=== PATIENT | male | born 1975 | race Hispanic/Latino ===

== ENCOUNTER 2021-07-02 00:13 | Day surgery (SDC) | payer BC, SELFPAY ==
[2021-06-23 11:46] VITALS: BMI 47.5
[2021-07-02 07:28] VITALS: BP 133/78; PULSE 77; RESP 18; TEMP 36.4; O2SAT 98; BMI 45.7
[2021-07-02] MEDS: LACTATED RINGERS 1,000 ML 150 ML IV CONT (07:53)
--- NOTE | 2021-07-02 08:12 | WPDANESEPPF ---
Anes - Initial Pre Proc Eval Procedure: Operation Date: 07/02/21 08:30 Proposed Procedures p Screening Colonoscopy - Roi García MD Date/Time: 07/02/21 08:12 Surgeon: Rio García MD Pre Op Diagnosis: neoplasm screening Patient Data Age: 46 Gender: M Height: 1.83 m Weight: 153 kg Last Vital Signs Temp 36.4 C L 07/02/21 07:28 Pulse 77 07/02/21 07:28 Resp 18 07/02/21 07:28 BP 133/78 07/02/21 07:28 Pulse Ox 98 07/02/21 07:28 Allergies Allergy/AdvReac Type Severity Reaction Status Date / Time No Known Allergies Allergy Verified 07/02/21 07:37 Home Medications Medication Instructions Recorded Confirmed Type levothyroxine 150 mcg tablet 150 mcg PO DAILY #90 tablet 12/07/20 07/02/21 Rx Lacto.acidophilus-Bif.animalis 1 cap PO DAILY 06/23/21 07/02/21 History [Daily Probiotic] fluticasone propionate [Flonase] 1 spray INTRANASAL DAILY 06/23/21 07/02/21 History loratadine [Claritin] 10 mg PO DAILY 06/23/21 07/02/21 History multivitamin [Daily Multivitamin] 1 tablet PO DAILY 06/23/21 07/02/21 History Patient hx anesthesia problems: none Family hx anesthesia problems: none Results Review: All pre-operative results and documents have been reviewed as part of the pre-operative evaluation. [facility] Past Medical History Medical History Diabetes Hypothyroidism Morbid obesity with BMI of 45.0-49.9, adult HILDA on CPAP Family History Family History Mother Hypertension Family history of malignant neoplasm lymphoma vs lung ca Father Family history of malignant neoplasm liver vs prostate cancer Social History Social History Smoking status: Never smoker Second hand tobacco smoke exposure: No Alcohol intake: current Alcohol use details: 1-2 drinks per month Substance use: never Substance use type: does not use Living arrangements: with family Gender identity (if verbalized by the patient): Male Spiritual care concerns: No Anes - Eval Final PreProcedure Day of Procedure 07/02/21 08:12 Patient weight: morbidly obese Heart: regular rate and rhythm Lungs: clear to auscultation Airway: Mallampati scale class II Neurological: alert and oriented Last oral intake: >/= 8 hours ASA classification: III Emergent: no Anesthetic plan: proceed Anesthesia type and monitoring: general GIVS and standard monitoring Results Review: All pre-operative results and documents have been reviewed as part of the pre-operative evaluation. Informed Consent: The patient's anesthetic plan and its attendant risks and benefits were discussed with the patient/family/POA. Questions were solicited and answers provided to the satisfaction of the patient/family/POA.
--- NOTE | 2021-07-02 08:18 | PM.HPGS ---
History of Present Illness History of Present Illness Consent: Risks, benefits, and alternatives have been discussed and questions answered. Patient agrees to proceed with procedure. Chief complaint: neoplasm screening Narrative: Rafael Zuniga Jr. is a 46 year old male here for screening colonoscopy Review of Systems Constitutional: Constitutional: Denies headache(s) and Denies weakness Eyes: Eyes: Denies blurry vision ENT: Reports Normal hearing present, Denies headache(s) and Denies neck pain Cardiovascular: Cardiovascular: Denies chest pain and Denies dyspnea Respiratory: Respiratory: Denies dyspnea Gastrointestinal: Gastrointestinal: Reports no additional gastrointestinal complaints Genitourinary: Genitourinary: Denies dysuria Musculoskeletal: Musculoskeletal: Denies neck pain Integumentary/Breasts: Skin/Breast: Denies dry skin Neurologic: Reports Normal hearing present, Denies headache(s) and Denies weakness Psychiatric: Psychiatric: Denies anxiety Endocrine: Endocrine: Denies change in body appearance Hematologic/Lymphatic: Hematologic/Lymphatic: Denies easy bleeding Allergic/Immunologic: Allergic/Immunologic: Denies urticaria [facility] Past Medical History Medical History (Updated 07/02/21 @ 08:19 by Rio García MD) Colon cancer screening Diabetes Hypothyroidism Morbid obesity with BMI of 45.0-49.9, adult HILDA on CPAP Family History Family History Mother Hypertension Family history of malignant neoplasm lymphoma vs lung ca Father Family history of malignant neoplasm liver vs prostate cancer Social History Social History Smoking status: Never smoker Second hand tobacco smoke exposure: No Alcohol intake: current Alcohol use details: 1-2 drinks per month Substance use: never Substance use type: does not use Living arrangements: with family Gender identity (if verbalized by the patient): Male Spiritual care concerns: No Meds Home Medications and Allergies Home Medications Medication Instructions Recorded Confirmed Type levothyroxine 150 mcg tablet 150 mcg PO DAILY #90 tablet 12/07/20 07/02/21 Rx Lacto.acidophilus-Bif.animalis 1 cap PO DAILY 06/23/21 07/02/21 History [Daily Probiotic] fluticasone propionate [Flonase] 1 spray INTRANASAL DAILY 06/23/21 07/02/21 History loratadine [Claritin] 10 mg PO DAILY 06/23/21 07/02/21 History multivitamin [Daily Multivitamin] 1 tablet PO DAILY 06/23/21 07/02/21 History Allergies Allergy/AdvReac Type Severity Reaction Status Date / Time No Known Allergies Allergy Verified 07/02/21 07:37 Vital Signs Vital Signs - 24 hr 07/02/21 07:28 Temperature 97.5 F L Pulse Rate 77 Respiratory Rate 18 Blood Pressure 133/78 Pulse Oximetry 98 Exam Const: General: comfortable and no acute distress HENMT: General nose exam: Normal nares present Eyes: General: appearance normal, both eyes and all related structures Neck: Neck: no JVD Resp: Auscultation: clear to auscultation bilaterally Cardio: Rate: regular rate Rhythm: regular rhythm GI: Inspection: non-distended GI Palp: Yes Soft to palpation Skin: General skin exam: normal color Neuro: General: gait normal Speech: normal speech Extrem: General: normal to inspection Psych: Mental Status: mental status grossly normal Assessment and Plan Assessment and plan (1) Colon cancer screening: Code(s): Z12.11 - Encounter for screening for malignant neoplasm of colon Status: Acute Assessment and Plan: colonoscopy
[2021-07-02 08:40] VITALS: BP 139/89; PULSE 77; RESP 21; O2SAT 96
[2021-07-02 08:50] VITALS: BP 118/75; PULSE 68; RESP 14; O2SAT 98
[2021-07-02 09:00] VITALS: BP 131/76; PULSE 65; RESP 18; O2SAT 98
== END 2021-07-02 09:06 | disposition home or self-care (01) ==
PROVIDERS: PCP Family Medicine; Visit Provider Internal Medicine Gastroenterology
PROC: 0DJD8ZZ Inspection of Lower Intestinal Tract, Via Natural or Artificial Opening Endoscopic (ICD-10-PCS; CPT 45378; principal; 2021-07-02 08:30)
DX: Z12.11 Encounter for screening for malignant neoplasm of colon (principal); D12.2 Benign neoplasm of ascending colon; K64.8 Other hemorrhoids; E11.9 Type 2 diabetes mellitus without complications; E03.9 Hypothyroidism, unspecified; G47.33 Obstructive sleep apnea (adult) (pediatric); E66.01 Morbid (severe) obesity due to excess calories; Z68.42 Body mass index [BMI] 45.0-49.9, adult
CPT/HCPCS: 45385; 88305; J2704; J7120

== ENCOUNTER 2024-07-26 00:27 | Day surgery (SDC) | payer BC, SELFPAY ==
[2024-07-18 14:17] VITALS: BMI 42.4
--- OUTSIDE RECORDS SUMMARY | 2024-07-26 00:30 | XMS_ITS | Referral Summary ---
Author Organization [facility] [address] Address [address] [place] [address] Care Team Providers Care Automat Watcher Name Role Phone Nii Wilson MD Primary Care Provider Social History Tobacco Use Types Packs/Day Years Used Date Smoking Tobacco: Never Assessed Personal Safety Answer Date Recorded Getting School Help Needed Not on file 06/24 Sex and Gender Information Value Date Recorded Sex Assigned at Not on file Legal Sex Male 11:46 AM CDT Gender Identity Not on file Sexual Orientation Not on file Plan of Treatment Not on file Insurance [facility] Care Teams Automat Watcher Relationship Specialty Start Date End Date Nii Wilson MD [address] [facility] [address] [place] [address] PCP - General Family Medicine 07/24/17
--- OUTSIDE RECORDS SUMMARY | 2024-07-26 00:30 | XMS_ITS | Clinical Summary ---
Author Organization [facility] [place] [address] Address [address] [place] [address] Care Team Providers Care Lye Treater Name Role Phone Nii Wilson MD Primary [...] Orientation Not on file Plan of Treatment Health Maintenance Due Date Last Done Comments Colon Cancer Screening-Colonoscopy 1974 Depression Screening 1974 Hepatitis C Screening 1974 Prostate Cancer Screening-PSA 1974 DTaP/Tdap/Td Vaccine (1 - Tdap) 1985 Hepatitis B Screening 1992 Regular Well Visit/Exam 18-64 1992 Covid-19 Vaccine ( season) 2023 12/31/2022, 01/02/2022, 03/02/2021, Additional history exists Influenza Vaccine (#1) 2023 , 12/12/2021, 12/12/2020, Additional history exists Zoster Vaccine (1 of 2) 2024 Pneumococcal vaccine <65 Aged Out No longer eligible based on patient's age to complete this topic Insurance [facility] Care Teams Lye Treater Relationship Specialty Start Date End Date Nii Wilson MD [address] [place] [address] PCP - General Family Medicine 07/24/17
[2024-07-26 10:37] VITALS: BP 116/76; PULSE 66; RESP 18; TEMP 36.3; O2SAT 100; BMI 41.5
[2024-07-26] MEDS: LACTATED RINGERS 1,000 ML 150 ML IV CONT (10:48)
[2024-07-26 10:50] LABS: Glucose Point of Care 105 mg/dl (65-105)
--- NOTE | 2024-07-26 12:05 | P.PNAN_ITS ---
Anes - Initial Pre Proc Eval Procedure: Operation Date: 07/26/24 12:30 Proposed Procedures p Colonoscopy - Rio García MD Date/Time: 07/26/24 12:05 Surgeon: Rio García MD Pre Op Diagnosis: Screening Patient Data Age: 49 Gender: M Height: 1.83 m Weight: 139 kg Last Vital Signs Temp 36.3 C L 07/26/24 10:37 Pulse 66 07/26/24 10:37 Resp 18 07/26/24 10:37 BP 116/76 07/26/24 10:37 Pulse Ox 100 07/26/24 10:37 O2 Del Method Room Air 07/26/24 10:37 Allergies Allergy/AdvReac Type Severity Reaction Status Date / Time No Known Allergies Allergy Verified 07/26/24 10:36 Home Medications ?Medication ?Instructions ?Recorded ?Confirmed ?Type Lactobacillus 1 cap PO DAILY 06/23/21 07/26/24 History acidophilus-Bifidobac.animalis 2.5 billion cell capsule (Daily Probiotic) loratadine 10 mg tablet (Claritin) 10 mg PO DAILY 06/23/21 07/26/24 History multivitamin 1 tablet PO DAILY 06/23/21 07/26/24 History levothyroxine 175 mcg tablet 175 mcg PO DAILY #90 tabs 01/15/24 07/26/24 Rx blood sugar diagnostic (Blood #100 ea 07/08/24 07/08/24 Rx Glucose Test strips) blood-glucose meter #1 ea 07/08/24 07/08/24 Rx lancets #100 ea 07/08/24 07/08/24 Rx metformin 500 mg tablet,extended 500 mg PO DAILY #90 tabs 07/08/24 07/26/24 Rx release 24 hr (Glucophage XR) tirzepatide 2.5 mg/0.5 mL 2.5 mg (0.5 mL) subcut WEEKLY #2 mL 07/08/24 07/08/24 Rx subcutaneous pen injector (Mounjaro) Laboratory Tests 07/26/24 10:47 POC Capillary Glucose 105 mg/dl (65-105) Patient hx anesthesia problems: none Family hx anesthesia problems: none Results Review: All pre-operative results and documents have been reviewed as part of the pre- operative evaluation. [facility] Past Medical History Medical History Colon cancer screening Morbid obesity with BMI of 45.0-49.9, adult Hypothyroidism HILDA on CPAP Family History Family History Mother Hypertension Family history of malignant neoplasm lymphoma vs lung ca Father Family history of malignant neoplasm liver vs prostate cancer Social History Social History Smoking status: Never smoker Second hand tobacco smoke exposure: No Alcohol intake: current Alcohol use details: 1 every 2 months Substance use: never Substance use type: does not use Living arrangements: with family Occupation/Education: occupation Gender identity (if verbalized by the patient): Male Spiritual care concerns: No Anes - Eval Final PreProcedure Day of Procedure 07/26/24 12:05 Patient weight: morbidly obese Heart: regular rate and rhythm Lungs: clear to auscultation Airway: Mallampati scale class III Neurological: alert and oriented Last oral intake: >/= 8 hours ASA classification: III Emergent: no Anesthetic plan: proceed Anesthesia type and monitoring: general GIVS and standard monitoring Results Review: All pre-operative results and documents have been reviewed as part of the pre- operative evaluation. Informed Consent: The patient's anesthetic plan and its attendant risks and benefits were discussed with the patient/family/POA. Questions were solicited and answers provided to the satisfaction of the patient/family/POA.
--- NOTE | 2024-07-26 12:06 | PM.HPGS ---
History of Present Illness History of Present Illness Consent: Risks, benefits, and alternatives have been discussed and questions answered. Patient agrees to proceed with procedure. Chief complaint: Screening Narrative: Rafael Zuniga Jr. is a 49 year old male with colon polyp in 2021 Review of Systems Review of Systems: All systems reviewed & are unremarkable except as noted in HPI and below PMFSH Past Medical History Medical History (Updated 07/26/24 @ 12:07 by Rio García MD) Adenomatous colon polyp Colon cancer screening Morbid obesity with BMI of 45.0-49.9, adult Hypothyroidism HILDA on CPAP Family History Family History Mother Hypertension Family history of malignant neoplasm lymphoma vs lung ca Father Family history of malignant neoplasm liver vs prostate cancer Social History Social History Smoking status: Never smoker Second hand tobacco smoke exposure: No Alcohol intake: current Alcohol use details: 1 every 2 months Substance use: never Substance use type: does not use Living arrangements: with family Occupation/Education: occupation Gender identity (if verbalized by the patient): Male Spiritual care concerns: No Meds Home Medications and Allergies Home Medications ?Medication ?Instructions ?Recorded ?Confirmed ?Type Lactobacillus 1 cap PO DAILY 06/23/21 07/26/24 History acidophilus-Bifidobac.animalis 2.5 billion cell capsule (Daily Probiotic) loratadine 10 mg tablet (Claritin) 10 mg PO DAILY 06/23/21 07/26/24 History multivitamin 1 tablet PO DAILY 06/23/21 07/26/24 History levothyroxine 175 mcg tablet 175 mcg PO DAILY #90 tabs 01/15/24 07/26/24 Rx blood sugar diagnostic (Blood #100 ea 07/08/24 07/08/24 Rx Glucose Test strips) blood-glucose meter #1 ea 07/08/24 07/08/24 Rx lancets #100 ea 07/08/24 07/08/24 Rx metformin 500 mg tablet,extended 500 mg PO DAILY #90 tabs 07/08/24 07/26/24 Rx release 24 hr (Glucophage XR) tirzepatide 2.5 mg/0.5 mL 2.5 mg (0.5 mL) subcut WEEKLY #2 mL 07/08/24 07/08/24 Rx subcutaneous pen injector (Mounbrandiero) Allergies Allergy/AdvReac Type Severity Reaction Status Date / Time No Known Allergies Allergy Verified 07/26/24 10:36 Vital Signs Vital Signs - 24 hr 07/26/24 10:37 Temperature 97.3 F L Pulse Rate 66 Respiratory Rate 18 Blood Pressure 116/76 Pulse Oximetry 100 Oxygen Delivery Room Air Exam Const: General: comfortable and no acute distress HENMT: Face/Nose/Sinus: Normal nares present Eyes: General: appearance normal, both eyes and all related structures Neck: Neck: no JVD Resp: Auscultation: clear to auscultation bilaterally Cardio: Rate: regular rate Rhythm: regular rhythm GI: Inspection: non-distended GI Palp: Yes Soft to palpation Skin: General skin exam: normal color Neuro: General: gait normal Speech: normal speech Extrem: General: normal to inspection Psych: Mental Status: mental status grossly normal Assessment and Plan Assessment and plan (1) Adenomatous colon polyp: Code(s): D12.6 - Benign neoplasm of colon, unspecified Status: Acute Assessment and Plan: colonoscopy
[2024-07-26 12:23] VITALS: BP 126/72; PULSE 70; RESP 18; O2SAT 100
[2024-07-26 12:33] VITALS: BP 126/70; PULSE 60; RESP 18; O2SAT 99
[2024-07-26 12:43] VITALS: BP 124/78; PULSE 60; RESP 18; O2SAT 99
== END 2024-07-26 12:57 | disposition home or self-care (01) ==
PROVIDERS: PCP Family Medicine; Referring Provider Physician Assistant; Visit Provider Internal Medicine Gastroenterology
PROC: 0DJD8ZZ Inspection of Lower Intestinal Tract, Via Natural or Artificial Opening Endoscopic (ICD-10-PCS; CPT 45378; principal; 2024-07-26 12:30)
DX: Z12.11 Encounter for screening for malignant neoplasm of colon (principal); K64.8 Other hemorrhoids; E66.01 Morbid (severe) obesity due to excess calories; Z68.41 Body mass index [BMI] 40.0-44.9, adult; Z79.85 Long-term (current) use of injectable non-insulin antidiabetic drugs
CPT/HCPCS: 45378; 82948; J2704; J7120

== ENCOUNTER 2024-11-13 14:30 | Outpatient (RCR) | payer BC, SELFPAY | END 2024-11-13 23:59 | disposition home or self-care (01) | LOC: ANHDMC 14:30 | PROVIDERS: PCP Family Medicine; Visit Provider Physician Assistant Medical | DX: E11.9 Type 2 diabetes mellitus without complications (principal); Z71.89 Other specified counseling | CPT/HCPCS: G0108 ==